=== PATIENT | male | born 1980 | race Caucasian/White ===

== ENCOUNTER 2017-01-26 18:42 | Emergency (ER) | payer MEDICAID ==
[2017-01-26 18:49] VITALS: RESP 16
--- NOTE | 2017-01-26 19:19 | EDPHY ---
General - History Smoking Status: Current some day smoker Narrative: CHIEF COMPLAINT: Right-sided neck pain, "pinched nerve" HISTORY OF PRESENT ILLNESS: Patient woke this morning with severe right-sided neck pain. This is localized to the right trapezius and SCM muscle. It is worse with palpation and movement of the head. He feels this is a pinched nerve. Improved at rest. Does not radiate. It is severe, 10/10 pain. There is minimal pain in the posterior aspect of the neck. No trauma or injury. No anesthesia, paresthesia or weakness of the right upper extremity. No difficulty with range of motion of the right arm other than pain with shoulder abduction. No fever or chills. No other associated complaints or modifying factors. PRIOR ORTHO INJURIES: None ESTABLISHED ORTHOPEDIST: None REVIEW OF SYSTEMS: Ten systems reviewed and are negative unless otherwise noted in the HPI EXAMINATION General Appearance: Alert, no distress Cardiovascular: Pulses normal throughout. Symmetric radial pulses are 2+. Brisk cap refill Neck: No point tenderness over the right trapezius and right sternocleidomastoid. There is no meningismus. Range of motion is intact but painful. No nuchal rigidity. Mild tenderness to the right of midline in the cervical region. No step-off, crepitus or deformity. Neurological: A&O, sensory symmetric, strength symmetric. 5/5 strength of the right wrist, elbow and shoulder Skin: Warm and dry, no rash Extremities: Nontender, no pedal edema. Range of motion of the shoulders, elbows and wrists are symmetric. Strength is 5/5. Psychiatric: Mood and affect normal DIFFERENTIAL DIAGNOSES: Including but not limited to cervical radiculopathy, cervical myofascial strain , torticollis, muscle spasm MDM: 7:15 p.m. Muscle spasm of the right trapezius muscle. This is very painful but point reproducible. There is no midline tenderness upon palpation. There is no numbness, paresthesia or weakness of the right upper extremity. Treat symptomatic with medications. Follow up with spine surgeon/neurosurgeon next week. Return to the ER for any worsening of pain, any paresthesia, anesthesia or weakness of the right upper extremity. Patient is comfortable with this plan and discharged home stable condition, neurovascularly intact ED Precautions: Worsening pain. Erythema, edema, cyanosis, pallor, paresthesia or anesthesia. SUPERVISION: This patient was independently evaluated without direct examination by the attending physician. Case was discussed with attending physician. (Norman Conroy) Medical Decision Making: I did not see this patient while he was in the emergency department. However his care was discussed with the PA while the patient was in the department. I agree with treatment plan and management (Rock Gardner) - Objective Vital Signs: Initial Vital Signs Heart Rate 95 01/26/17 18:46 Respiratory Rate 16 01/26/17 18:46 Blood Pressure 125/96 H 01/26/17 18:46 O2 Sat (%) 95 01/26/17 18:46 O2 Delivery Mode Room Air Allergies/Adverse Reactions: No Known Allergies Allergy (Unverified 01/26/17 18:48) Home Medications: Medication Instructions Recorded Cyclobenzaprine [Flexeril 10 MG 10 mg PO TID PRN #15 tab 01/26/17 (*)] Hydrocodone/APAP 5/325 [[place] 1 - 2 tab PO Q4H PRN #10 tab 01/26/17 5/325 (*)] Prozac 40 mg 01/26/17 predniSONE [Deltasone] 60 mg PO DAILY #15 tablet 01/26/17 Medications Given: Discontinued Medications Hydrocodone Bitart/Acetaminophen ([place] 5/325) 1 tab PO EDNOW ONE Stop: 01/26/17 19:34 Last Admin: 01/26/17 19:41 Dose: 1 tab Cyclobenzaprine HCl (Flexeril) 10 mg PO EDNOW ONE Stop: 01/26/17 19:34 Last Admin: 01/26/17 19:40 Dose: 10 mg Departure - Departure Disposition: Home, Routine, Self-Care Clinical Impression: Muscle spasm Condition: Good Instructions: Spasmodic Torticollis (ED), Muscle Spasm (ED) Additional Instructions: Medications as prescribed as needed. Additionally, take Aleve twice daily or ibuprofen 600 mg every 8 hours as needed. Stop after 5 days. Follow up with Neurosurgery for repeat examination next week. Return to the ER for worsening symptoms, weakness, numbness or tingling. Referrals: [facility] [Other] - As per Instructions Giuseppe Arias MD [Medical Doctor] - As per Instructions Stand Alone Forms: Work Excuse Prescriptions: Cyclobenzaprine [Flexeril 10 MG (*)] 10 mg PO TID PRN #15 tab PRN Reason: Spasms Hydrocodone/APAP 5/325 [[place] 5/325 (*)] 1 - 2 tab PO Q4H PRN #10 tab PRN Reason: Pain, Moderate predniSONE [Deltasone] 60 mg PO DAILY #15 tablet
[2017-01-26] MEDS ORDERED: CYCLOBENZAPRINE 10 MG TAB PO ONE (19:33)
[2017-01-26] MEDS ORDERED: HYDROCODONE/APAP 5/325 TAB PO ONE (19:33)
[2017-01-26 20:02] VITALS: BP 123/80; PULSE 73; O2SAT 96
== END 2017-01-26 20:04 | disposition home or self-care (01) ==
DX: M62.838 Other muscle spasm (principal); F17.200 Nicotine dependence, unspecified, uncomplicated

== ENCOUNTER 2017-04-09 03:56 | Emergency (ER) | payer MEDICAID ==
[2017-04-09 04:01] VITALS: TEMP 98.4
[2017-04-09] MEDS ORDERED: LORazepam 1 MG TAB PO ONE (05:03)
--- NOTE | 2017-04-09 05:10 | EDPHY ---
H & P Stated Complaint: med reaction Time Seen by Provider: 04/09/17 04:56 HPI/ROS: HPI The patient presents with concern for adverse reaction to the Lexapro he started 2 days ago. He is being treated for depression by a psychiatrist. He was previously on Prozac, however is no longer on this because the caused anxiety for him. For the last 1 day he is been experiencing anxiety, insomnia, hallucinations which include music playing and objects in the distance that are not real. This is never happened to him before. He denies any suicidal ideation or homicidal ideation.. REVIEW OF SYSTEMS Constitutional: No fever, no chills. Eyes: No discharge. ENT: No sore throat. Cardiovascular: No chest pain, no palpitations. Respiratory: No cough, no shortness of breath. Gastrointestinal: No abdominal pain, no vomiting. Genitourinary: No hematuria. Musculoskeletal: No back pain. Skin: No rashes. Neurological: No headache. PMHx: Depression Soc Hx: Tobacco smoker, no alcohol, occasional marijuana PHYSICAL General Appearance: Alert, no distress Eyes: Pupils equal and round no pallor or injection ENT, Mouth: Mucous membranes moist Respiratory: There are no retractions, lungs are clear to auscultation Cardiovascular: Regular rate and rhythm Gastrointestinal: Abdomen is soft and non-tender, no masses, bowel sounds normal Neurological: A&O, moves all extremities Skin: Warm and dry, no rashes Musculoskeletal: Neck is supple non tender Extremities: symmetrical, full range of motion Psychiatric: Patient is oriented X 3, there is no agitation Source: Patient Exam Limitations: No limitations - Personal History Current Tetanus/Diphtheria Vaccine: Unsure Current Tetanus Diphtheria and Acellular Pertussis (TDAP): Unsure - Medical/Surgical History Hx Asthma: No Hx Chronic Respiratory Disease: No Hx Diabetes: No Hx Cardiac Disease: No Hx Renal Disease: No Hx Cirrhosis: No Hx Alcoholism: No Hx HIV/AIDS: No Hx Splenectomy or Spleen Trauma: No Other PMH: Denies - Social History Smoking Status: Current every day smoker Constitutional: Initial Vital Signs Temperature (C) 36.9 C 04/09/17 04:00 Heart Rate 102 H 04/09/17 04:00 Respiratory Rate 16 04/09/17 04:00 Blood Pressure 113/77 04/09/17 04:00 O2 Sat (%) 93 04/09/17 04:00 O2 Delivery Mode Room Air Allergies/Adverse Reactions: No Known Allergies Allergy (Unverified 04/09/17 03:59) Home Medications: Medication Instructions Recorded Lexapro 04/09/17 Medical Decision Making Differential Diagnosis: This is a 36-year-old male with history of depression, started on Lexapro 2 days ago by his psychiatrist, now with anxiety, insomnia, mild hallucinations, both visual and audio. On exam, he has normal vital signs and is generally well-appearing. I will give him a dose of Ativan to see if this improves his symptoms. I have advised that he follow up with his primary treating psychiatrist for medication adjustment as needed. The patient received Ativan in the emergency room and felt better. He was tired and able to rest. He says the hallucinations have improved though he still has very mild auditory hallucinations. He is otherwise oriented and able to tell me plan for discharge. I will send him out with instructions to follow up with his psychiatrist or [facility] today. He may need a new medication as Lexapro seems to be giving him this side-effect. He is not suitable for M1 hold as he is not gravely disabled and denies SI and HI. - Data Points Medications Given: Discontinued Medications Lorazepam (Ativan) 1 mg PO EDNOW ONE Stop: 04/09/17 05:04 Last Admin: 04/09/17 05:13 Dose: 1 mg Departure - Departure Disposition: Home, Routine, Self-Care Clinical Impression: Hallucinations Medication side effect Qualifiers: Encounter type: initial encounter Qualified Code(s): T88.7XXA - Unspecified adverse effect of drug or medicament, initial encounter Condition: Good Instructions: Hallucinations (ED) Additional Instructions: Please go home and get some sleep. If you continue to have hallucinations, you should call your psychiatrist or go to [facility] immediately. Return to the emergency room if your worse in any way. Referrals: [facility] [Other] - As per Instructions [facility],. [Clinic] - As per Instructions
[2017-04-09 06:08] VITALS: RESP 16
[2017-04-09 06:29] VITALS: BP 115/79; PULSE 86; O2SAT 96
== END 2017-04-09 06:29 | disposition home or self-care (01) ==
DX: R44.3 Hallucinations, unspecified (principal); T43.225A Adverse effect of selective serotonin reuptake inhibitors, initial encounter; F17.200 Nicotine dependence, unspecified, uncomplicated

== ENCOUNTER 2018-03-02 07:03 | Emergency (ER) | payer MEDICAID, OTHER ==
[2018-03-02 07:09] VITALS: BP 100/71
[2018-03-02] MEDS ORDERED: DIAZEPAM 5 MG PREPACK#4 BTL TAKEHOME ONE (07:29)
[2018-03-02] MEDS ORDERED: DIAZEPAM 5 MG TAB PO ONE (07:29)
--- NOTE | 2018-03-02 07:34 | EDPHY ---
H & P Time Seen by Provider: 03/02/18 07:24 HPI/ROS: HPI Anxiety. 37-year-old male on foot. This patient reports that he has a history of anxiety and depression. He reports that he has been feeling more anxious lately and having a harder time sleeping. He reports he was on Prozac but has been off of this for a year. Because of increased depression he started taking Prozac again a few days ago. He reports that he has had a reaction to it which she describes as increased anxiety. He denies any suicidal or homicidal thoughts. He is asking for some medicine to help him with his anxiety. [facility] in the past. This is where he gets his prescriptions. Denies alcohol. No other complaints. He is asking for a note for work excuse today because he was not able to sleep last night. ROS: Constitutional: No fever, no chills. As above. Eyes: No discharge. No changes in vision. ENT: No sore throat. No nasal congestion or rhinorrhea. Respiratory: No cough. No shortness of breath. Cardiac: No chest pain, no palpitations. Gastrointestinal: No abdominal pain, no vomiting, no diarrhea. Genitourinary: No hematuria. No dysuria or increased frequency with urination. Musculoskeletal: No back pain. No neck pain. No myalgias or arthralgias. Skin: No rashes. Neurological: No headache. No focal weakness or altered sensation. Past medical history: Depression, anxiety. As above. Social history: Tobacco smoker. Smokes marijuana. Denies other street drugs. Denies alcohol. Lives in an apartment. Physical Exam: General Appearance: Alert, mildly anxious. Not in distress. This patient is responding to questions appropriately and in full sentences. This patient appears well-hydrated and well-nourished. Eyes: Pupils equal and round no pallor or injection. No lid edema, erythema or injection. Respiratory: There are no retractions, lungs are clear to auscultation with good air movement bilaterally. Cardiovascular: Regular rate and rhythm. No murmur. Gastrointestinal: Abdomen is soft and nontender, no masses, bowel sounds normal. No focal tenderness at McBurney's point. No Dow sign. Neurological: Motor sensory function is grossly intact. Cranial nerves are normal. Gait is normal. Skin: Warm and dry, no rashes. Musculoskeletal: Neck is supple and nontender. Extremities are symmetrical. All joints range without pain or impingement. Psychiatric: No agitation. No depression. Database: EKG: Imaging: Procedures: Emergency department course: Vital signs reviewed and are unremarkable. After my evaluation of the patient I offered to give him a take-home pack of Valium and 5 mg of this medication in the emergency department. He stated this would help him and that he would follow up with his primary care physician at [facility] or his mental health provider at [facility] for ongoing management and refill of his prescriptions psychiatric medications. He is not suicidal. He feels comfortable going home. I will give him a work excuse for today. Follow-up was thoroughly discussed with him. Return to emergency department precautions reviewed. All of his questions were answered. He was discharged in good condition. Differential Diagnosis: The differential diagnosis on this patient includes but is not limited to anxiety reaction, medication reaction. Serotonin syndrome, neuroleptic malignant syndrome, suicidal ideation unlikely. This represents a partial list of diagnoses considered. These considerations are based on history, physical exam, past history, reassessment and diagnostic testing. Smoking Status: Current every day smoker Constitutional: Initial Vital Signs Temperature (C) 37.0 C 03/02/18 07:06 Heart Rate 87 03/02/18 07:06 Respiratory Rate 16 03/02/18 07:06 Blood Pressure 100/71 03/02/18 07:06 O2 Sat (%) 98 03/02/18 07:06 O2 Delivery Mode Room Air Allergies/Adverse Reactions: No Known Allergies Allergy (Verified 03/02/18 07:05) Home Medications: Medication Instructions Recorded Lexapro 04/09/17 Departure - Departure Disposition: Home, Routine, Self-Care Clinical Impression: Anxiety reaction Condition: Good Instructions: Anxiety (ED), Anxiolysis in Adults (ED) Additional Instructions: Read and follow provided instructions. Follow-up with your primary care physician or mental health provider at [facility] in 1-2 days for re-evaluation and ongoing management of your depression and anxiety. Take medication as prescribed. Valium 5 mg tablets: 1 orally every 6-8 hours or before bed for anxiety and to help you sleep. Do not drive on this medication P Return to the emergency department for worsening symptoms, suicidal thoughts or other serious concerns. Referrals: [facility],. [Clinic] - As per Instructions [facility],. [Clinic] - As per Instructions Stand Alone Forms: Work Excuse
== END 2018-03-02 07:40 | disposition home or self-care (01) ==
DX: F41.1 Generalized anxiety disorder (principal); F17.200 Nicotine dependence, unspecified, uncomplicated